=== PATIENT | female | born 1980 | race Hispanic/Latino ===

== ENCOUNTER 2017-11-07 18:49 | Emergency (ER) | payer OTHER ==
[~2017-11-07] VITALS: Ht 167.6 cm; Wt 71.7 kg
[2017-11-07] MEDS ORDERED: KETOROLAC TROMETHAMINE 60 MG/2 ML VIAL IM ONE (22:30)
[2017-11-07] MEDS ORDERED: DIAZEPAM 5 MG TAB PO PRN (22:30)
[2017-11-07] MEDS ORDERED: KETOROLAC TROMETHAMINE 60 MG/2 ML VIAL ONE (22:32)
[2017-11-07] MEDS ORDERED: DIAZEPAM 5 MG TAB ONE (22:33)
--- NOTE | 2017-11-07 23:35 | Diagnostic Imaging Report ---
EXAM: CERVICAL SPINE 4 OR 5 VIEWS, AP, lateral, bilateral obliques and open mouth odontoid DATE: 11/07/2017 10:25 PM Time stamp on exam: 2244 hours INDICATION: Neck/back pain, posterior neck/upper back, no reported trauma COMPARISON: None FINDINGS: BONES: On the lateral view, the cervical spine is visualized from the skull base to C7. The alignment is within normal limits. Nonspecific straightening of the normal lordosis of the cervical spine. No displaced fractures. No lytic or blastic lesions. DISCS: Degenerative disc manifested by mild disc space narrowing and osteophytosis C5/C6. JOINTS: Mild uncovertebral arthrosis on the right C5/C6. SOFT TISSUES: Unremarkable IMPRESSION: Mild degenerative changes of the cervical spine at C5/C6. Nonspecific straightening of the normal lordosis of the cervical spine. Signed by: Dr. Lesli Brooke M.D. on 11/07/2017 11:30 PM
[2017-11-07 23:51] VITALS: BP 119/76
== END 2017-11-07 23:57 | disposition home or self-care (01) ==
LOC: RAD 18:49
DX: M54.2 Cervicalgia (principal); M54.12 Radiculopathy, cervical region; S16.1XXA Strain of muscle, fascia and tendon at neck level, initial encounter
CPT/HCPCS: 72050; 99283; J1885